=== PATIENT | male | born 1990 | race Caucasian/White ===

== ENCOUNTER 2019-04-21 14:00 | Emergency (ER) | payer SELFPAY ==
[~2019-04-21] VITALS: Ht 160 cm; Wt 96.6 kg
[2019-04-21 14:12] VITALS: Ht 160 cm; Wt 96.6 kg
[2019-04-21 16:17] VITALS: BP 123/71
== END 2019-04-21 16:17 | disposition home or self-care (01) ==
LOC: ED 14:00
DX: R42 Dizziness and giddiness (principal); R20.2 Paresthesia of skin; R19.7 Diarrhea, unspecified; Z88.0 Allergy status to penicillin
CPT/HCPCS: 87804; J7030